=== PATIENT | male | born 1980 | race Caucasian/White ===

== ENCOUNTER 2016-07-24 15:22 | Emergency (ER) | payer OTHER ==
[~2016-07-24] VITALS: Ht 177.8 cm; Wt 64.0 kg
[2016-07-24 16:07] LABS: HEMATOCRIT 39.3 % (38.0-50.0); MCH 27.7 PG (29.0-34.0); MCHC 33.1 G/DL (30.0-36.0); MCV 83.8 FL (86-99); MEAN PLAT.VOLUME 9.9 uM^3 (9.0-12.4); PLATELET COUNT 257 K/uL (156-360); RBC DIS.WIDTH-CV 12.1 % (11.8-14.6); RBC DIS.WIDTH-SD 36.6 % (39-53); RED BLOOD COUNT 4.69 M/uL (4.00-5.50); WHITE BLOOD COUNT 4.8 K/uL (4.1-10.2)
[2016-07-24 16:38] LABS: CHLORIDE 105 mEq/L (99-109); SODIUM 141 mEq/L (136-147)
[2016-07-24 16:40] LABS: GLUCOSE 100 mg/dL (70-99)
[2016-07-24 16:41] LABS: ANION GAP 10 MEQ/L (2-14)
[2016-07-24 16:42] LABS: TOTAL BILIRUBIN 0.4 mg/dL (0.0-1.0)
[2016-07-24 16:43] LABS: ALKALINE PHOSPHATASE 46 IU/L (3-129)
[2016-07-24 16:44] LABS: GFR ESTIMATE (CALCULATED) > 59 mL/min/
[2016-07-24 16:45] LABS: UREA NITROGEN (BUN) 14 mg/dL (9-23)
[2016-07-24 16:47] LABS: LIPASE 10 U/L (1.0-51.0)
[2016-07-24 17:35] LABS: BILIRUBIN NEGATIVE; BLOOD NEGATIVE; COLOR YELLOW ((YELLOW)); GLUCOSE (STRIP) NEGATIVE; KETONES NEGATIVE; LEUKOCYTES NEGATIVE; NITRITE NEGATIVE; PROTEIN (STRIP) NEGATIVE; SPECIFIC GRAVITY 1.027 (1.000-1.030); UROBILINOGEN 0.2 MG/DL (0.2-1.0)
[2016-07-24 17:36] LABS: ADD MIUA? NO; UCUL ADDED? NO
[2016-07-24] MEDS ORDERED: BACTRIM,SEPT1 TABLET PO (18:08)
[2016-07-24 18:17] VITALS: BP 102/58
== END 2016-07-24 18:18 | disposition home or self-care (01) ==
LOC: EME 15:22
PROVIDERS: Nurse Practitioner Family
DX: N39.0 Urinary tract infection, site not specified (principal); F17.200 Nicotine dependence, unspecified, uncomplicated
CPT/HCPCS: 80053; 81003; 83690; 85027; 99281; 99284

== ENCOUNTER 2016-07-31 11:22 | Emergency (ER) | payer OTHER ==
[~2016-07-31] VITALS: Ht 180.3 cm; Wt 63.7 kg
[~2016-07-31 11:22] MED LIST: BACTRIM,SEPT1 TABLET PO
[2016-07-31 13:01] LABS: HEMATOCRIT 47.6 % (38.0-50.0); MCH 27.6 PG (29.0-34.0); MCHC 32.6 G/DL (30.0-36.0); MCV 84.8 FL (86-99); MEAN PLAT.VOLUME 10.4 uM^3 (9.0-12.4); PLATELET COUNT 265 K/uL (156-360); RBC DIS.WIDTH-CV 11.9 % (11.8-14.6); RBC DIS.WIDTH-SD 36.7 % (39-53); RED BLOOD COUNT 5.61 M/uL (4.00-5.50); WHITE BLOOD COUNT 4.9 K/uL (4.1-10.2)
[2016-07-31 13:04] LABS: ADD MIUA? YES; BILIRUBIN NEGATIVE; BLOOD SMALL; COLOR YELLOW ((YELLOW)); GLUCOSE (STRIP) NEGATIVE; KETONES NEGATIVE; LEUKOCYTES MODERATE; NITRITE NEGATIVE; PROTEIN (STRIP) NEGATIVE; SPECIFIC GRAVITY 1.012 (1.000-1.030); UROBILINOGEN 0.2 MG/DL (0.2-1.0)
[2016-07-31 13:13] LABS: CHLORIDE 100 mEq/L (99-109); POTASSIUM 4.7 mEq/L (3.7-5.4); SODIUM 137 mEq/L (136-147)
[2016-07-31 13:15] LABS: GLUCOSE 134 mg/dL (70-99)
[2016-07-31 13:17] LABS: ANION GAP 10 MEQ/L (2-14)
[2016-07-31 13:19] LABS: ALKALINE PHOSPHATASE 54 IU/L (3-129); GFR ESTIMATE (CALCULATED) > 59 mL/min/
[2016-07-31 13:20] LABS: UREA NITROGEN (BUN) 18 mg/dL (9-23)
[2016-07-31 13:22] LABS: BACTERIA RARE /HPF; EPITHELIAL CELLS RARE /HPF; MUCUS NONE SEEN /LPF; RED BLOOD CELLS 0-5 /HPF (0-5); UCUL ADDED? NO
[2016-07-31 13:22] LABS: LIPASE 17 U/L (1.0-51.0)
[2016-07-31 13:24] LABS: TOTAL BILIRUBIN 0.5 mg/dL (0.0-1.0)
[2016-07-31] MEDS ORDERED: MACROBID100 MG PO (15:16)
[2016-07-31 15:28] VITALS: BP 102/68
== END 2016-07-31 15:29 | disposition left against medical advice (07) ==
LOC: EME 11:22 → RME 11:22
PROVIDERS: Nurse Practitioner Family
DX: R30.0 Dysuria (principal); F17.200 Nicotine dependence, unspecified, uncomplicated
CPT/HCPCS: 80053; 81003; 83690; 85027; 87086; 99281; 99284